=== PATIENT | male | born 1995 | race Caucasian/White ===

== ENCOUNTER 2017-10-13 11:05 | Emergency (ER) | payer BC ==
[2017-10-13 11:24] VITALS: BP 128/66
--- NOTE | 2017-10-13 11:59 | RAD ---
INDICATION: Nasal bone injury COMPARISON: None TECHNIQUE: Routine 3 view imaging was performed. FINDINGS: The anterior nasal bones and the nasal process of the maxilla are intact. The visualized paranasal sinuses are clear. The soft tissue elements are normal. IMPRESSION: NEGATIVE EXAMINATION
--- NOTE | 2017-10-13 12:01 | UC ---
Epistaxis Nasal HPI - HPI Summary HPI Summary: Pt presents with ?fx to nose after injury last night. He tells me he was playing soccer with friends and went to head the ball when he collided with another player. Other player's head hit his right cheek and nose. No LOC. He had immediate pain and nosebleed that lasted about 1 hour. He is here today with swelling and pain about the nose. No trouble breathing, no snoring, no other bleeding. Denies dizziness, headache, or vision changes. - History of Current Complaint Chief Complaint: UCHeadInjury Stated Complaint: NOSE INJURY Time Seen by Provider: 10/13/17 11:56 Hx Obtained From: Patient Onset/Duration: Sudden Onset Timing: Constant Severity Initially: Mild Severity Currently: Mild Pain Intensity: 3 Pain Scale Used: 0-10 Numeric Aggravating Factor(s): Nasal Trauma Alleviating Factor(s): Ice - Allergies/Home Medications Allergies/Adverse Reactions: Allergies Allergy/AdvReac Type Severity Reaction Status Date / Time No Known Allergies Allergy Verified 10/13/17 11:24 Home Medications: Home Medications NK [No Home Medications Reported] 10/13/17 [History Confirmed 10/13/17] PMH/Surg Hx/FS Hx/Imm Hx Previously Healthy: Yes - Surgical History Surgical History: Yes Surgery Procedure, Year, and Place: 2012 left hand , third metacarpal - Family History Known Family History: Positive: None - Social History Occupation: Student Lives: Dormitory/Roommates Alcohol Use: Occasionally Substance Use Type: None Smoking Status (MU): Never Smoked Tobacco Review of Systems Constitutional: Negative Skin: Negative Eyes: Negative ENT: Other - Nasal pain Respiratory: Negative Cardiovascular: Negative Neurological: Negative Psychological: Negative All Other Systems Reviewed And Are Negative: Yes Physical Exam - Summary Physical Exam Summary: GENERAL: NAD. WDWN. No pain distress. SKIN: No rashes, sores, ulcers, masses, lesions. No clubbing or cyanosis. HEENT: Head: AT/NC Eyes: PERRLA. EOM intact. Conjunctiva clear without inflammation or discharge. Ears: Hearing grossly normal. TMs intact, no bulging, erythema, or edema. Nose: Mild deviation to the left just below the nasal bridge with moderate edema. Nasal mucosa pink and moist. NTTP maxillary and frontal sinus. No septal hematoma. Throat: Posterior oropharynx without exudates, erythema, or tonsillar enlargement. Uvula midline. NECK: Supple. Nontender. No lymphadenopathy. FROM. CHEST: CTAB. No r/r/w. No accessory muscle use. Breathing comfortably and in no distress. CV: RRR. Without m/r/g. Pulses intact. Brisk cap refill. NEURO: Alert. CN II-XII grossly intact. PSYCH: Age appropriate behavior. Triage Information Reviewed: Yes Appearance: Well-Appearing, No Pain Distress, Well-Nourished Vital Signs: Initial Vital Signs Temp 98.6 F 10/13/17 11:18 Pulse 59 10/13/17 11:18 Resp 16 10/13/17 11:18 BP 128/66 10/13/17 11:18 Pulse Ox 100 10/13/17 11:18 Epistaxis Nasal Course/Dx - Course Course Of Treatment: XR: IMPRESSION: NEGATIVE EXAMINATION. Given an obvious deformity on exam, I will have him f/u with ENT sometime this week for further eval. - Differential Dx/Diagnosis Provider Diagnoses: Nasal trauma Discharge - Discharge Plan Condition: Stable Disposition: HOME Patient Education Materials: Nasal Fracture (ED) Referrals: [facility] - Chu ROSADO [Primary Care Provider] - Calvin Penaloza MD [Medical Doctor] - As Soon As Possible Additional Instructions: If you develop a fever, shortness of breath, chest pain, new or worsening symptoms - please call your PCP or go to the ED. 1) Please schedule a follow up appointment with Ear, Nose, and Throat at the number below.
== END 2017-10-13 12:28 | disposition home or self-care (01) ==
LOC: UCEAST 11:05
DX: S09.92XA Unspecified injury of nose, initial encounter (principal); W51.XXXA Accidental striking against or bumped into by another person, initial encounter; Y93.66 Activity, soccer; Y92.39 Other specified sports and athletic area as the place of occurrence of the external cause
CPT/HCPCS: 70160; 99201; G0463